=== PATIENT | male | born 2005 | race Caucasian/White ===

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

== ENCOUNTER 2024-05-06 11:58 | Emergency (ER) | payer BC, OTHER ==
[2024-05-06 12:07] VITALS: TEMP 97.6
--- NOTE | 2024-05-06 12:17 | ED ---
General Adult HPI - General Source: patient Mode of arrival: ambulatory Limitations: no limitations <Michael Rogel - Last Filed: 05/06/24 12:16> <Leanna Smith - Last Filed: 05/06/24 18:19> - General Chief complaint: Abdominal Pain Stated complaint: vomiting, abd pain - History of Present Illness Initial comments: Quick note: 18-year-old male presents to the emergency department nausea and abdominal pain since around 7 AM this morning. Patient is a marijuana user. Uses marijuana daily. States that he has not had any issues with marijuana use in the past. He had some associated diarrhea. Denies any fever, chills or night sweats. States that his emesis is nonbilious nonbloody. Denies any history of abdominal surgery. No obvious sick contacts. Denies any recent travel. Vital signs reviewed General: Well-appearing, nontoxic, no acute distress. Head: Normocephalic, atraumatic Eyes: PERRLA, EOMI ENT: Airway patent Chest: Nonlabored breathing Skin: No visual rash, normal skin tone Neuro: Alert and oriented 3 Musculoskeletal: No gross abnormalities (Michael Rogel) This is a 18-year-old male with no cervical past medical history presenting to the emergency department chief complaint of nausea, vomiting, and epigastric abdominal pain that started approximately 07 100 this morning. Patient states he has intermittent diarrhea and constipation as well. Denies hematemesis or coffee-ground emesis. Denies fevers, chills, nausea, vomiting, congestion, cough. States that he does use marijuana daily a similar episode with refractory nausea and vomiting. States that his symptoms are generally alleviated with being in a warm shower. (Leanna Smith) - Related Data Previous Rx's Medication Instructions Recorded Omeprazole [PriLOSEC] 20 mg PO AC-BRKFST #14 cap 01/27/21 Ondansetron Odt [Zofran Odt] 4 mg PO Q8HR PRN #10 tab 05/06/24 Allergies Allergy/AdvReac Type Severity Reaction Status Date / Time No Known Allergies Allergy Verified 05/06/24 12:07 Review of Systems ROS Other: All systems not noted in ROS Statement are negative. <Michael Rogel - Last Filed: 05/06/24 12:16> ROS Other: All systems not noted in ROS Statement are negative. <Leanna Smith - Last Filed: 05/06/24 18:19> ROS Statement: Those systems with pertinent positive or pertinent negative responses have been documented in the HPI. Past Medical History Past Medical History: No Reported History History of Any Multi-Drug Resistant Organisms: None Reported Past Surgical History: No Surgical Hx Reported Past Psychological History: No Psychological Hx Reported Smoking Status: Never smoker Past Alcohol Use History: None Reported Past Drug Use History: None Reported <Michael Rogel - Last Filed: 05/06/24 12:16> General Exam Limitations: no limitations <Michael Rogel - Last Filed: 05/06/24 12:16> General appearance: alert, in no apparent distress Eye exam: Present: normal appearance, PERRL, EOMI. Absent: scleral icterus, conjunctival injection, periorbital swelling ENT exam: Present: normal exam, mucous membranes moist Respiratory exam: Present: normal lung sounds bilaterally. Absent: respiratory distress, wheezes, rales, rhonchi, stridor Cardiovascular Exam: Present: regular rate, normal rhythm, normal heart sounds. Absent: systolic murmur, diastolic murmur, rubs, gallop, clicks GI/Abdominal exam: Present: soft, tenderness (epigastric), normal bowel sounds. Absent: distended, guarding, rebound, rigid Extremities exam: Present: normal inspection, full ROM, normal capillary refill. Absent: tenderness, pedal edema, joint swelling, calf tenderness Back exam: Present: normal inspection Skin exam: Present: warm, dry, intact, normal color. Absent: rash <Leanna Smith - Last Filed: 05/06/24 18:19> Course Vital Signs 05/06/24 05/06/24 05/06/24 12:05 16:07 16:58 Temperature 97.6 F Pulse Rate 109 H 94 72 Respiratory 16 20 18 Rate Blood Pressure 172/92 156/68 143/66 O2 Sat by Pulse 100 98 99 Oximetry Medical Decision Making - Lab Data Result diagrams: 05/06/24 12:20 05/06/24 12:20 <Leanna Smith - Last Filed: 05/06/24 18:19> - Medical Decision Making Was pt. sent in by a medical professional or institution (RUBÉN Johnson, [employer] SERVICE SUPERVISOR, urgent care, hospital, or prison...) When possible be specific @ -No Did you speak to anyone other than the patient for history (EMS, parent, family, police, friend...)? What history was obtained from this source @ -No Did you review nursing and triage notes (agree or disagree)? Why? @ -I reviewed and agree with nursing and triage notes Were old charts reviewed (outside hosp., previous admission, EMS record, old EKG, old radiological studies, urgent care reports/EKG's, prison records)? Report findings @ -No old charts were reviewed Differential Diagnosis (chest pain, altered mental status, abdominal pain women, abdominal pain men, vaginal bleeding, weakness, fever, dyspnea, syncope, headache, dizziness, GI bleed, back pain, seizure, CVA, palpatations, mental health, musculoskeletal)? @ -Differential Abdominal Pain Men: Appendicitis, cholecystitis, diverticulosis, ischemic bowel, pancreatitis, hepatitis, UTI, gastroenteritis, AAA, incarcerated hernia, bowel obstruction, constipation, inflammatory bowel, hepatitis, peptic ulcer disease, splenic infarction, perforated viscus, testicular torsion, this is not meant to be an all-inclusive list EKG interpreted by me (3pts min.). @ -none X-rays interpreted by me (1pt min.). @ -None done CT interpreted by me (1pt min.). @ -None done U/S interpreted by me (1pt. min.). @ -Ultrasound of the right upper quadrant reveals no evidence for acute process What testing was considered but not performed or refused? (CT, X-rays, U/S, labs)? Why? @ -None What meds were considered but not given or refused? Why? @ -None Did you discuss the management of the patient with other professionals (professionals i.e. RUBÉN Johnson, WARD SERVICE SUPERVISOR, lab, RT, psych nurse, social worker psychiatric, comic book designer, teacher, bsa officer, case advocate)? Give summary @ -No Was smoking cessation discussed for >3mins.? @ -No Was critical care preformed (if so, how long)? @ -No Were there social determinants of health that impacted care today? How? (Homelessness, low income, unemployed, alcoholism, drug addiction, transportation, low edu. Level, literacy, decrease access to med. care, long-term, rehab)? @ -No Was there de-escalation of care discussed even if they declined (Discuss DNR or withdrawal of care, Hospice)? DNR status @ -No What co-morbidities impacted this encounter? (DM, HTN, Smoking, COPD, CAD, Cancer, CVA, ARF, Chemo, Hep., AIDS, mental health diagnosis, sleep apnea, morbid obesity)? @ -None Was patient admitted / discharged? Hospital course, mention meds given and route, prescriptions, significant lab abnormalities, going to OR and other pertinent info. @ -Discharge. 18-year-old male with abdominal pain, nausea and vomiting laboratory studies were ordered in addition to ultrasound imaging and initially evaluated in the emergency department waiting room as a quick note. On my evaluation, the patient is noted to have had multiple episode of emesis will be in the emergency department. Patient has mild tenderness to palpation of the epigastric region with no signs of rebound tenderness or rigidity. lab studies remarkable for leukocytosis 7.4 neutrophils 80.7 which is likely reactive secondary to multiple episodes of emesis. CMP unremarkable, and urine tox positive for THC. Patient is provided with IV fluids and Zofran. On reevaluation states that he is feeling markedly better after Zofran. Recommend that patient follow liquid diet over the next 24 hours and slowly reintroduce foods after. Patient is sent a prescription for Zofran to take as needed for intermittent nausea. Recommend that patient discontinue use of marijuana as this may be contributing to symptoms. Undiagnosed new problem with uncertain prognosis? @ -No Drug Therapy requiring intensive monitoring for toxicity (Heparin, Nitro, Insulin, Cardizem)? @ -No Were any procedures done? @ -No Diagnosis/symptom? @ -Nausea and vomiting, epigastric abdominal pain, marijuana abuse Acute, or Chronic, or Acute on Chronic? @ -Acute Uncomplicated (without systemic symptoms) or Complicated (systemic symptoms)? @ -Uncomplicated Side effects of treatment? @ -No Exacerbation, Progression, or Severe Exacerbation? @ -No Poses a threat to life or bodily function? How? (Chest pain, USA, ID, pneumonia, PE, COPD, DKA, ARF, appy, cholecystitis, CVA, Diverticulitis, Homicidal, Suicidal, threat to staff... and all critical care pts) @ -No (Leanna Smith) - Lab Data Lab Results 05/06/24 05/06/24 05/06/24 Range/Units 12:20 12:20 16:51 WBC 17.4 H (4.0-11.0) k/uL RBC 5.03 (4.30-5.90) m/uL Hgb 14.3 (13.0-17.5) gm/dL Hct 43.3 (39.0-53.0) % MCV 86.1 (80.0-100.0) fL MCH 28.4 (25.0-35.0) pg MCHC 33.0 (31.0-37.0) g/dL RDW 12.8 (11.5-15.5) % Plt Count 383 (150-450) k/uL MPV 7.6 Neutrophils % 90 % Lymphocytes % 7 % Monocytes % 2 % Eosinophils % 1 % Basophils % 0 % Neutrophils # 15.7 H (1.3-7.7) k/uL Lymphocytes # 1.2 (1.0-4.8) k/uL Monocytes # 0.3 (0-1.0) k/uL Eosinophils # 0.1 (0-0.7) k/uL Basophils # 0.0 (0-0.2) k/uL Sodium 140 (137-145) mmol/L Potassium 4.2 (3.5-5.1) mmol/L Chloride 101 (98-107) mmol/L Carbon Dioxide 28 (22-30) mmol/L Anion Gap 11 mmol/L BUN 16 (9-20) mg/dL Creatinine 0.98 (0.66-1.25) mg/dL Est GFR (CKD-EPI)AfAm >90 (>60 ml/min/1.73 sqM) Est GFR (CKD-EPI)NonAf >90 (>60 ml/min/1.73 sqM) Glucose 137 H (74-99) mg/dL Calcium 10.1 (8.4-10.2) mg/dL Total Bilirubin 0.3 (0.2-1.3) mg/dL AST 26 (17-59) U/L ALT 21 (4-49) U/L Alkaline Phosphatase 66 (38-126) U/L Total Protein 8.5 H (6.3-8.2) g/dL Albumin 5.2 H (3.5-5.0) g/dL Lipase 57 (23-300) U/L Urine Opiates Screen Not Detected (NotDetected) Ur Oxycodone Screen Not Detected (NotDetected) Urine Methadone Screen Not Detected (NotDetected) Ur Barbiturates Screen Not Detected (NotDetected) U Tricyclic Antidepress Not Detected (NotDetected) Ur Phencyclidine Scrn Not Detected (NotDetected) Ur Amphetamines Screen Not Detected (NotDetected) U Methamphetamines Scrn Not Detected (NotDetected) U Benzodiazepines Scrn Not Detected (NotDetected) Urine Cocaine Screen Not Detected (NotDetected) U Marijuana (THC) Screen Detected H (NotDetected) Disposition <Michael Rogel - Last Filed: 05/06/24 12:16> Is patient prescribed a controlled substance at d/c from ED?: No Time of Disposition: 16:50 <Leanna Smith - Last Filed: 05/06/24 18:19> Clinical Impression: Nausea and vomiting, Marijuana abuse Disposition: HOME SELF-CARE Condition: Stable Additional Instructions: Please return to the Emergency Department if symptoms worsen or any other concerns. Continue to use Zofran as needed for intermittent nausea. Follow liquid diet over the next 24 hours and slowly reintroducing foods such as bananas, rice, applesauce, and toast. Recommend that you abstain from marijuana use. Prescriptions: Ondansetron Odt [Zofran Odt] 4 mg PO Q8HR PRN #10 tab PRN Reason: Nausea Referrals: [facility] [NON-STAFF] - 1-2 days [facility] [NON-STAFF] - 1-2 days None,Stated [Primary Care Provider] - 1-2 days Forms: Area PCPs
[2024-05-06 12:33] LABS: Basophils % (A) 0 %; Eosinophils # (A) 0.1 k/uL (0-0.7); Eosinophils % (A) 1 %; HCT 43.3 % (39.0-53.0); HGB 14.3 gm/dL (13.0-17.5); Lymphocytes # (A) 1.2 k/uL (1.0-4.8); Lymphocytes % (A) 7 %; MCH 28.4 pg (25.0-35.0); MCV 86.1 fL (80.0-100.0); Mean Platelet Volume 7.6; Monocytes # (A) 0.3 k/uL (0-1.0); Monocytes % (A) 2 %; Neutrophils # (A) 15.7 k/uL (1.3-7.7); Neutrophils % (A) 90 %; Platelet Count 383 k/uL (150-450); RBC 5.03 m/uL (4.30-5.90); RDW 12.8 % (11.5-15.5); WBC 17.4 k/uL (4.0-11.0)
[2024-05-06 12:45] LABS: ALT 21 U/L (4-49); AST 26 U/L (17-59); African American GFR (CKD) >90 (>60 ml/min/1.73 sqM); Albumin 5.2 g/dL (3.5-5.0); Alkaline Phosphatase 66 U/L (38-126); Anion Gap 11 mmol/L; Blood Urea Nitrogen 16 mg/dL (9-20); Calcium 10.1 mg/dL (8.4-10.2); Carbon Dioxide 28 mmol/L (22-30); Chloride 101 mmol/L (98-107); Glucose 137 mg/dL (74-99); Lipase 57 U/L (23-300); Non-African American GFR(CKD) >90 (>60 ml/min/1.73 sqM); Potassium 4.2 mmol/L (3.5-5.1); Sodium 140 mmol/L (137-145); Total Bilirubin 0.3 mg/dL (0.2-1.3); Total Protein 8.5 g/dL (6.3-8.2)
--- NOTE | 2024-05-06 13:34 | US ---
EXAMINATION TYPE: US abdomen limited DATE OF EXAM: 05/06/2024 COMPARISON: Gallbladder ultrasound 01/27/2021 CLINICAL INDICATION: Male, 18 years old with history of epigastric and ruq pain; RUQ pain. N/V. TECHNIQUE: Grayscale and color Doppler imaging of the right upper quadrant was performed. FINDINGS: EXAM MEASUREMENTS: Liver Length: 15.0 cm Gallbladder Wall: 0.1 cm CBD: 0.5 cm Right Kidney: 9.7 x 5.5 x 4.5 cm Pancreas: Head obscured by bowel gas Liver: wnl Gallbladder: No stones or wall thickening Evidence for sonographic Almaraz's sign: neg CBD: wnl Right Kidney: No hydronephrosis or masses seen Pelvis portions of the pancreas unremarkable. Liver is unremarkable without focal lesion. No gallston es, wall thickening or surrounding fluid. Negative sonographic Almaraz sign. Common bile duct is withi n normal limits. Right kidney demonstrates no hydronephrosis, solid mass or nephrolithiasis. IMPRESSION: No ultrasound evidence for an acute process. [facility], , 05/06/2024 1:31 PM
[2024-05-06] MEDS: ONDANSETRON 4 MG/2 ML VIAL IVP STA (15:53)
[2024-05-06] MEDS: SODIUM CHLORIDE 0.9% 1,000 ML IV STA (15:53)
[2024-05-06] MEDS: PANTOPRAZOLE 40 MG/10 ML VIAL IVP STA (16:06)
[2024-05-06] MEDS: ONDANSETRON 4 MG ODT STARTER PACK 2 TAB BTL PO STA (16:55)
[2024-05-06 16:59] VITALS: BP 143/66; PULSE 72; RESP 18
[2024-05-06 17:17] LABS: Amphetamine Screen,Urine Not Detected (NotDetected); Barbiturate Screen,Urine Not Detected (NotDetected); Benzodiazepines Screen,Urine Not Detected (NotDetected); Cocaine Screen,Urine Not Detected (NotDetected); Methadone Screen, Urine Not Detected (NotDetected); Opiate Screen,Urine Not Detected (NotDetected); Oxycodone Screen, Urine Not Detected (NotDetected); Phencyclidine Screen,Urine Not Detected (NotDetected); Tricyclic Antidepressant,Urine Not Detected (NotDetected); Urn Cannabinoid Scrn Detected (NotDetected)
== END 2024-05-06 17:00 | disposition home or self-care (01) ==
LOC: EC 11:58
DX: R10.9 Unspecified abdominal pain (principal); R11.2 Nausea with vomiting, unspecified; R10.13 Epigastric pain; F12.10 Cannabis abuse, uncomplicated
CPT/HCPCS: 36415; 80053; 83690; 85025; 80306; 76705; 99284; 96374; 96375; 96361; J2405; S0119; J2470